=== PATIENT | female | born 1970 | race American Indian/Alaskan Native ===

== ENCOUNTER 2021-04-15 23:59 | Emergency (ER) | payer SELFPAY ==
[2021-04-16 01:20] VITALS: BP 120/56
[2021-04-16] MEDS ORDERED: oxyCODONE /ACETAMINOPHEN 5-325MG TAB PO ONE (01:45)
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
== END 2021-04-16 08:10 | disposition home or self-care (01) ==
LOC: ED 23:59
DX: S82.302A Unspecified fracture of lower end of left tibia, initial encounter for closed fracture (principal); X58.XXXA Exposure to other specified factors, initial encounter; Y93.9 Activity, unspecified; Y92.89 Other specified places as the place of occurrence of the external cause; Y99.8 Other external cause status
CPT/HCPCS: 99283